=== PATIENT | female | born 1945 | race Caucasian/White ===

== ENCOUNTER → 2018-06-09 | Outpatient (CLI) | payer OTHER | END | disposition home or self-care (01) | LOC: RAH 13:26 | PROVIDERS: ATTEND Internal Medicine Cardiovascular Disease | DX: Z13.6 Encounter for screening for cardiovascular disorders (principal) | CPT/HCPCS: 75571 ==

== ENCOUNTER → 2022-12-04 | Outpatient (CLI) | payer MEDICARE, OTHER ==
[~2022-12-04] MED LIST: IOHEXOL 350 MG/ML 100ML INFUS..BTL IV ONE
== END | disposition home or self-care (01) ==
LOC: RAH 10:47
PROVIDERS: ATTEND Internal Medicine Cardiovascular Disease
DX: I20.9 Angina pectoris, unspecified (principal)
CPT/HCPCS: 75574; Q9967